=== PATIENT | female | born 1985 | race Caucasian/White ===

== ENCOUNTER 2017-02-12 10:57 | Emergency (ER) | payer OTHER ==
[2017-02-12 11:02] VITALS: BP 118/77; PULSE 87; TEMP 98.1; BMI 24.1
--- NOTE | 2017-02-12 11:13 | PDOC ---
History of Present Illness - General Chief Complaint: Pain Stated Complaint: FALL/ RIB PAIN Time Seen by Provider: 02/12/17 11:11 History Source: Patient Exam Limitations: No Limitations - History of Present Illness Initial Comments: 02/12/17 11:42 31 yr female slipped and fell on tile floor in her home one week ago. Pt states she landed on her left couch arm. Pt continued to have pain however pt slipped yesterday and pulled the same side. Pt has pain with deep breath. no shortness of breath or chest pain. Occurred: reports: last week Severity: reports: moderate Pain Location: reports: chest Method of Injury: Yes: fall Past History - Past Medical History Allergies/Adverse Reactions: Allergies Allergy/AdvReac Type Severity Reaction Status Date / Time fish derived Allergy Rash Verified 05/20/16 10:16 ibuprofen [From Motrin] Allergy Verified 02/12/17 11:02 Home Medications: Ambulatory Orders Oxycodone HCl/Acetaminophen [Percocet 5-325 mg Tablet] 1 tab PO Q6H PRN #16 tablet MDD 4 tabs 02/12/17 Other medical history: denies - Surgical History Abdominal Surgery: (HERNIA) - Immunization History Td Vaccination: No TDAP Vaccination: No - Psycho/Social/Smoking Cessation Hx Anxiety: Yes Suicidal Ideation: No Smoking Status: Yes Smoking History: Current every day smoker Number of Cigarettes Smoked Daily: 10 Information on smoking cessation initiated: Yes 'Breaking Loose' booklet given: 02/12/17 Hx Alcohol Use: No Drug/Substance Use Hx: No Substance Use Type: None Trauma Specific PMHX - Complaint Specific PMHX Arthritis: No Back Injury: No Neck Injury: No Hx Sacro Iliac Joint Dysfunction: No Review of Systems - Review of Systems Able to Perform ROS?: Yes Is the patient limited Korean proficient: No Constitutional: No: Symptoms Reported HEENTM: No: Symptoms Reported Respiratory: No: Symptoms reported Cardiac (ROS): Yes: See HPI *Physical Exam - Vital Signs Last Vital Signs Temp Pulse Resp BP Pulse Ox 98.1 F 87 18 118/77 98 02/12/17 10:59 02/12/17 10:59 02/12/17 10:59 02/12/17 10:59 02/12/17 10:59 - Physical Exam General Appearance: Yes: Nourished, Appropriately Dressed HEENT: positive: EOMI, JOHANA, Normal ENT Inspection, TMs Normal, Pharynx Normal Neck: positive: Supple Respiratory/Chest: positive: Chest Tender (left axilary line rib tenderness ), Lungs Clear, Normal Breath Sounds Cardiovascular: positive: Regular Rhythm, Regular Rate Medical Decision Making - Medical Decision Making 02/12/17 11:44 cc: fell last week injured left flank pain was improving however pt slipped again yesterday and pulled the same muscle in same area too tylenol no relief, no abd pain no urine or bowel dysfunction will r/o xray toradol for pain (pt is not allergic to motrin it gives her GI upset) 02/12/17 12:13 xray discussed with radiologist no evidence of pneumonthorax, no effusion dc inst discussed in detail with pt and her mother. all questions asked and answered before discharge. pt stable on discharge. 02/12/17 12:21 *DC/Admit/Observation/Transfer Diagnosis at time of Disposition: Fracture, rib Qualifiers: Encounter type: initial encounter Rib fracture type: single rib Fracture type: closed Laterality: left Qualified Code(s): S22.32XA - Fracture of one rib, left side, initial encounter for closed fracture - Discharge Dispostion Disposition: HOME Condition at time of disposition: Good - Prescriptions Prescriptions: Oxycodone HCl/Acetaminophen [Percocet 5-325 mg Tablet] 1 tab PO Q6H PRN #16 tablet MDD 4 tabs PRN Reason: Severe Pain - Patient Instructions Additional Instructions: take percocet for severe pain this medication can make you dizzy or sleepy use caution when taking this, always take with food take regular tylenol 650mg every 4-6hrs for mild to moderate pain apply warm compresses to the area of pain every 3 hrs for 20 minutes take deep breaths and drink pleanty of fluids to stay hydrated return if any worsening symptoms follow with your doctor for follow up next week
[2017-02-12] MEDS ORDERED: KETOROLAC TROMETHAMINE 60 MG/2 ML VIAL IM ONE (11:42)
[2017-02-12] MEDS ORDERED: KETOROLAC TROMETHAMINE 60 MG/2 ML VIAL ONE (11:46)
== END 2017-02-12 12:23 | disposition home or self-care (01) ==
LOC: JERFT 10:57
PROC: 3E0233Z Introduction of Anti-inflammatory into Muscle, Percutaneous Approach (ICD-10-PCS; principal; 2017-02-12)
DX: S22.32XA Fracture of one rib, left side, initial encounter for closed fracture (principal); W22.03XA Walked into furniture, initial encounter; Y93.9 Activity, unspecified; Y92.008 Other place in unspecified non-institutional (private) residence as the place of occurrence of the external cause; F17.210 Nicotine dependence, cigarettes, uncomplicated
CPT/HCPCS: 71020-TC; 71101-TC; 84703; 96372; 99281-25

== ENCOUNTER 2017-08-24 08:03 | Emergency (ER) | payer OTHER ==
[2017-08-24 08:20] VITALS: BMI 23.3
[2017-08-24 08:58] LABS: URINE APPEARANCE CLEAR; URINE BILIRUBIN NEGATIVE (NEGATIVE); URINE BLOOD NEGATIVE (NEGATIVE); URINE COLOR LTYELLOW; URINE GLUCOSE (UA) NEGATIVE (NEGATIVE); URINE KETONE NEGATIVE (NEGATIVE); URINE LEUK ESTERASE NEGATIVE (NEGATIVE); URINE NITRITE NEGATIVE (NEGATIVE); URINE PROTEIN NEGATIVE (NEGATIVE); URINE UROBILINOGEN NEGATIVE mg/dL (0.2-1.0)
[2017-08-24] MEDS ORDERED: CYCLOBENZAPRINE HCL 10 MG TABLET (FP) PO ONE (08:59)
[2017-08-24] MEDS ORDERED: morphine CARPU-JECT 4 MG/1 ML DISP.SYRIN IVPUSH ONE (08:59)
[2017-08-24] MEDS ORDERED: SODIUM CHLORIDE 1,000 ML IV STA (08:59)
[2017-08-24] MEDS ORDERED: CYCLOBENZAPRINE HCL 10 MG TABLET (FP) ONE (09:06)
[2017-08-24] MEDS ORDERED: morphine CARPU-JECT 2 MG/1 ML DISP.SYRIN ONE (09:06)
[2017-08-24 09:18] LABS: EOSINOPHIL 1.5 % (0-4.5); MCH 28.8 pg (25.7-33.7); MCHC 33.6 g/dl (32.0-36.0); MEAN CELL VOLUME 85.7 fl (80-96); MEAN PLT VOLUME 8.4 fl (7.5-11.1); NEUTROPHILS 65.2 % (42.8-82.8); PLATELET COUNT 278 K/MM3 (134-434); RDW 14.5 % (11.6-15.6); WHITE BLOOD COUNT 9.2 K/mm3 (4.0-10.0)
--- NOTE | 2017-08-24 09:33 | PDOC ---
History of Present Illness - General History Source: Patient Exam Limitations: No Limitations - History of Present Illness Initial Comments: 08/24/17 10:05 The patient is a 31 year old female, with questionable past medical history of irregular heartbeat/TIA?, scoliosis, who presents to the emergency room complaining of middle back pain that woke her up from a sound sleep this morning. She thinks that she turned in the wrong direction when the back pain began and it made her see stars. The pain feels like her back is tightening and sometimes takes her breath away. She notes that she has had muscle spasms in the past and this feels the same as the previous spasms. Denies chest pain, SOB. Denies abdominal pain. Denies fever, chills, nausea, vomiting. Allergies: ibuprofen, fish <Denise Valdez - Last Filed: 08/24/17 10:04> - General History Source: Patient, Old Records Exam Limitations: No Limitations <Maxx Granados - Last Filed: 08/24/17 11:36> - General Chief Complaint: Back Pain Stated Complaint: BACK PAIN Time Seen by Provider: 08/24/17 08:16 Past History <Denise Valdez - Last Filed: 08/24/17 10:04> - Surgical History Abdominal Surgery: (HERNIA) - Immunization History Td Vaccination: No TDAP Vaccination: No - Suicide/Smoking/Psychosocial Hx Smoking Status: Yes Smoking History: Current every day smoker Have you smoked in the past 12 months: Yes Number of Cigarettes Smoked Daily: 2 Information on smoking cessation initiated: No 'Breaking Loose' booklet given: 02/12/17 Hx Alcohol Use: Yes Drug/Substance Use Hx: No Substance Use Type: Alcohol <Maxx Granados - Last Filed: 08/24/17 11:36> - Past Medical History Allergies/Adverse Reactions: Allergies Allergy/AdvReac Type Severity Reaction Status Date / Time fish derived Allergy Rash Verified 08/24/17 08:06 ibuprofen [From Motrin] Allergy Verified 08/24/17 08:06 Home Medications: Ambulatory Orders Diazepam [Valium] 5 mg PO BID PRN #10 tablet MDD 2 08/24/17 Methocarbamol [Robaxin -] 500 mg PO BID PRN #14 tablet 08/24/17 Oxycodone HCl/Acetaminophen [Percocet 5-325 mg Tablet] 1 tab PO Q6H PRN #20 tablet MDD 4 08/24/17 Review of Systems - Review of Systems Able to Perform ROS?: Yes Comments:: 08/24/17 10:05 GENERAL/CONSTITUTIONAL: No fever or chills. No weakness. HEAD, EYES, EARS, NOSE AND THROAT: No change in vision. No ear pain or discharge. No sore throat. CARDIOVASCULAR: No chest pain or shortness of breath. RESPIRATORY: No cough, wheezing, or hemoptysis. GASTROINTESTINAL: No nausea, vomiting, diarrhea or constipation. GENITOURINARY: No dysuria, frequency, or change in urination. MUSCULOSKELETAL: +middle back pain. No neck pain. SKIN: No rash NEUROLOGIC: No headache, vertigo, loss of consciousness, or change in strength/ sensation. ENDOCRINE: No increased thirst. No abnormal weight change. HEMATOLOGIC/LYMPHATIC: No anemia, easy bleeding, or history of blood clots. ALLERGIC/IMMUNOLOGIC: No hives or skin allergy. <Denise Valdez - Last Filed: 08/24/17 10:04> *Physical Exam - Vital Signs Last Vital Signs Temp Pulse Resp BP Pulse Ox 98.5 F 61 16 116/62 100 08/24/17 08:12 08/24/17 08:12 08/24/17 08:12 08/24/17 08:12 08/24/17 08:12 - Physical Exam Comments: 08/24/17 10:05 GENERAL: Awake, alert, and fully oriented. Appears very uncomfortable HEAD: No signs of trauma EYES: PERRLA, EOMI, sclera anicteric, conjunctiva clear ENT: Auricles normal inspection, hearing grossly normal, nares patent, oropharynx clear without exudates. Moist mucosa NECK: Normal ROM, supple, no lymphadenopathy, JVD, or masses LUNGS: Breath sounds equal, clear to auscultation bilaterally. No wheezes, and no crackles HEART: Regular rate and rhythm, normal S1 and S2, no murmurs, rubs or gallops ABDOMEN: Soft, nontender, normoactive bowel sounds. No guarding, no rebound. No masses BACK: mid upper back spasm. Moving all extremities with 5/5 strength. EXTREMITIES: Normal range of motion, no edema. No clubbing or cyanosis. No cords, erythema, or tenderness NEUROLOGICAL: Cranial nerves II through XII grossly intact. Normal speech, normal gait SKIN: Warm, Dry, normal turgor, no rashes or lesions noted. <Sam Valdezssica - Last Filed: 08/24/17 10:04> - Vital Signs Last Vital Signs Temp Pulse Resp BP Pulse Ox 98.5 F 61 16 116/62 100 08/24/17 08:12 08/24/17 08:12 08/24/17 08:12 08/24/17 08:12 08/24/17 08:12 <Mee Granadosel - Last Filed: 08/24/17 11:36> ED Treatment Course - LABORATORY CBC & Chemistry Diagram: 08/24/17 09:10 08/24/17 09:10 - ADDITIONAL ORDERS Additional order review: Laboratory Results 08/24/17 08/24/17 09:10 08:45 Sodium 137 Potassium 4.5 Chloride 108 H Carbon Dioxide 24 Anion Gap 5 L BUN 14 Creatinine 0.8 Creat Clearance w eGFR > 60 Random Glucose 98 Calcium 8.7 Total Bilirubin 0.2 D AST 10 L ALT 17 D Alkaline Phosphatase 66 Total Protein 6.5 Albumin 3.6 Lipase 219 Urine Color Ltyellow Urine Appearance Clear Urine pH 6.0 Urine Protein Negative Urine Glucose (UA) Negative Urine Ketones Negative Urine Blood Negative Urine Nitrite Negative Urine Bilirubin Negative Urine Urobilinogen Negative Urine HCG, Qual Negative 08/24/17 09:10 RBC 4.61 MCV 85.7 MCHC 33.6 RDW 14.5 MPV 8.4 Neutrophils % 65.2 Lymphocytes % 25.1 D Monocytes % 7.2 Eosinophils % 1.5 Basophils % 1.0 - Medications Given in the ED: ED Medications Discontinued Medications Generic Name Dose Route Start Last Admin Trade Name Freq PRN Reason Stop Dose Admin Cyclobenzaprine HCl 10 mg 08/24/17 08:59 08/24/17 09:10 Flexeril - PO 08/24/17 09:00 10 mg ONCE ONE Administration Sodium Chloride 1,000 mls @ 1,000 mls/hr 08/24/17 08:59 08/24/17 09:00 Normal Saline - IV 08/24/17 09:58 1,000 mls/hr ASDIR STA Administration Morphine Sulfate 4 mg 08/24/17 08:59 08/24/17 09:10 Morphine Injection - IVPUSH 08/24/17 09:00 4 mg ONCE ONE Administration <Denise Valdez - Last Filed: 08/24/17 10:04> - LABORATORY CBC & Chemistry Diagram: 08/24/17 09:10 08/24/17 09:10 - ADDITIONAL ORDERS Additional order review: Laboratory Results 08/24/17 08:45 Urine HCG, Qual Negative <Maxx Granados - Last Filed: 08/24/17 11:36> Medical Decision Making - Medical Decision Making 08/24/17 09:00 A portion of this note was documented by scribe services under my direction. I have reviewed the details of the note, within reason, and agree with the documentation with the following case summary and management plan written by me. Patient treated in the ED. Nursing notes are reviewed and incorporated into the medical decision-making. Vital signs reviewed. Peripheral IV access obtained by the nurse, laboratory studies are drawn and sent, reviewed and interpreted by myself. Vital Signs Temp Pulse Resp BP Pulse Ox 98.5 F 61 16 116/62 100 08/24/17 08:12 08/24/17 08:12 08/24/17 08:12 08/24/17 08:12 08/24/17 08:12 31 year old female with ?history of irregular heart beat with ?TIA p/w back spasm. 31-year-old female presents with mid back spasm. Patient reports that she has intermittent chronic back pain. Woke up this morning with severe back spasm. Denies flank pain dysuria, intermittent anterior, fevers, chills. I suspect that the patient is having a severe muscle spasm. However, will check UA and labs to r/o pyelonephritis. Pain control and reassess. 08/24/17 11:24 CBC, BMP 08/24/17 09:10 08/24/17 09:10 CMP Sodium 137 mmol/L (136-145) 08/24/17 09:10 Potassium 4.5 mmol/L (3.5-5.1) 08/24/17 09:10 Chloride 108 mmol/L (98-107) H 08/24/17 09:10 Carbon Dioxide 24 mmol/L (21-32) 08/24/17 09:10 Anion Gap 5 (8-16) L 08/24/17 09:10 BUN 14 mg/dL (7-18) 08/24/17 09:10 Creatinine 0.8 mg/dL (0.55-1.02) 08/24/17 09:10 Creat Clearance w eGFR > 60 (>60) 08/24/17 09:10 Random Glucose 98 mg/dL (74-106) 08/24/17 09:10 Calcium 8.7 mg/dL (8.5-10.1) 08/24/17 09:10 Total Bilirubin 0.2 mg/dL (0.2-1.0) D 08/24/17 09:10 AST 10 U/L (15-37) L 08/24/17 09:10 ALT 17 U/L (12-78) D 08/24/17 09:10 Alkaline Phosphatase 66 U/L (45-117) 08/24/17 09:10 Total Protein 6.5 g/dl (6.4-8.2) 08/24/17 09:10 Albumin 3.6 g/dl (3.4-5.0) 08/24/17 09:10 Lipase 219 U/L (73-393) 08/24/17 09:10 Urine Test Results Urine Color Ltyellow 08/24/17 08:45 Urine Appearance Clear 08/24/17 08:45 Urine pH 6.0 (5.0-8.0) 08/24/17 08:45 Ur Specific [place] 1.020 (1.005-1.025) 08/24/17 08:45 Urine Protein Negative (NEGATIVE) 08/24/17 08:45 Urine Glucose (UA) Negative (NEGATIVE) 08/24/17 08:45 Urine Ketones Negative (NEGATIVE) 08/24/17 08:45 Urine Blood Negative (NEGATIVE) 08/24/17 08:45 Urine Nitrite Negative (NEGATIVE) 08/24/17 08:45 Urine Bilirubin Negative (NEGATIVE) 08/24/17 08:45 Labs reviewed. pt reports feeling significantly better with percocet and valium. Pt will go home with family. Again, likely back spasm. Supportive care and follow up with PMD I discussed the physical exam findings, ancillary test results and final diagnoses with the patient. I answered all of the patient's questions. The patient was satisfied with the care received and felt comfortable with the discharge plan and treatment plan. The patient will call their primary care physician within 24 hours to arrange follow-up and will return to the Emergency Department with any new, persistant or worsening symptoms. <Maxx Granados - Last Filed: 08/24/17 11:36> *DC/Admit/Observation/Transfer - Attestations Scribe Attestion: 08/24/17 10:05 Documentation prepared by SOLA Rose, acting as medical coding technician for Maxx Granados MD. <Denise Valdez - Last Filed: 08/24/17 10:04> - Discharge Dispostion Admit: No <Maxx Granados - Last Filed: 08/24/17 11:36> Diagnosis at time of Disposition: Back spasm - Discharge Dispostion Disposition: HOME Condition at time of disposition: Improved - Prescriptions Prescriptions: Oxycodone HCl/Acetaminophen [Percocet 5-325 mg Tablet] 1 tab PO Q6H PRN #20 tablet MDD 4 PRN Reason: Pain Methocarbamol [Robaxin -] 500 mg PO BID PRN #14 tablet PRN Reason: Muscle Spasm Diazepam [Valium] 5 mg PO BID PRN #10 tablet MDD 2 PRN Reason: Severe Muscle Spasm - Patient Instructions Printed Discharge Instructions: DI for Back Spasm Additional Instructions: It is very important that you follow up with your doctor. It may take several days before you feel better. Take 1 tablet of percocet every 6 to 8 hours as needed for pain. For muscle spasm, take a tablet of robaxin every 12 hours as needed. For severe muscle spasm, take a tablet of valium every 12 hours as needed. This medication may make you drowsy so please do not drink or drive. - Post Discharge Activity Forms/Work/School Notes: Back to Work
[2017-08-24 09:41] LABS: ALBUMIN 3.6 g/dl (3.4-5.0); ANION GAP 5 (8-16); BILIRUBIN,TOTAL 0.2 mg/dL (0.2-1.0); CALCIUM 8.7 mg/dL (8.5-10.1); CO2 24 mmol/L (21-32); CREATININE 0.8 mg/dL (0.55-1.02); GLUCOSE,RANDOM 98 mg/dL (74-106); SGOT/AST 10 U/L (15-37); SGPT/ALT 17 U/L (12-78); TOT PROT 6.5 g/dl (6.4-8.2)
[2017-08-24 09:42] LABS: ALK PHOS 66 U/L (45-117)
[2017-08-24] MEDS ORDERED: diazePAM 5 MG TABLET PO ONE (10:17)
[2017-08-24] MEDS ORDERED: diazePAM 5 MG TABLET ONE (10:23)
[2017-08-24 12:16] VITALS: BP 120/68; PULSE 64; TEMP 98.2
== END 2017-08-24 13:12 | disposition home or self-care (01) ==
LOC: JER 08:03
PROC: 3E0337Z Introduction of Electrolytic and Water Balance Substance into Peripheral Vein, Percutaneous Approach (ICD-10-PCS; principal; 2017-08-24)
PROC: 3E033NZ Introduction of Analgesics, Hypnotics, Sedatives into Peripheral Vein, Percutaneous Approach (ICD-10-PCS; 2017-08-24)
DX: M62.830 Muscle spasm of back (principal)
CPT/HCPCS: 36415; 80053; 81003; 83690; 84703; 85025; 87086; 96361; 96374; 99282-25

== ENCOUNTER 2017-12-28 18:50 | Emergency (ER) | payer OTHER ==
--- NOTE | 2017-12-28 18:57 | PDOC ---
Rapid Medical Evaluation Time Seen by Provider: 12/28/17 18:55 Medical Evaluation: Allergies Allergy/AdvReac Type Severity Reaction Status Date / Time fish derived Allergy Rash Verified 08/24/17 08:06 ibuprofen [From Motrin] Allergy Verified 08/24/17 08:06 12/28/17 18:57 32 year old female smoker s/p fall with head trauma 10/01/17, then fell down stairs 3-4 weeks ago and hit head again, here with headaches, intermittent vision loss, and "beeping" in ears. Denies abuse. V/s unremarkable. -Pgu -To Main ED for further evaluation
[2017-12-28 19:00] VITALS: BP 119/73; PULSE 74; TEMP 98.6; BMI 23.3
--- NOTE | 2017-12-28 20:01 | PDOC ---
History of Present Illness - General Chief Complaint: Headache Stated Complaint: HEADACHE Time Seen by Provider: 12/28/17 18:55 History Source: Patient Exam Limitations: No Limitations - History of Present Illness Initial Comments: CHIEF COMPLAINT: 32 y/o afebrile female with no significant PMH c/o headaches, vision changes and vomiting s/p 2 head injuries. HISTORY OF PRESENT ILLNESS: The patient states she hit the right side of her head about 3 months ago and had a bump on her head "for a while". She states 3 weeks ago she fell backwards and hit her head again. She admits she lost consciousness after both falls. She states for the past 3 weeks she's gotten headaches twice a day with some vision changes and vomiting. She denies f/c, neck pain, bleeding from ears/nose, dizziness, Cp, SOB, abd pain. She is not taking any medication for her symptoms. Vital signs on arrival are within normal limits. REVIEW OF SYSTEMS: GENERAL/CONSTITUTIONAL: No fever/chills. No weakness. No weight change. HEAD, EYES, EARS, NOSE AND THROAT: +vision changes. No ear pain or discharge. No sore throat. No orbital swelling or deformities . CARDIOVASCULAR: No chest pain or shortness of breath. RESPIRATORY: No cough, wheezing, or hemoptysis. GASTROINTESTINAL: +vomiting. no diarrhea, constipation, abd pain. GENITOURINARY: No dysuria, frequency, or change in urination. MUSCULOSKELETAL: No joint or muscle swelling or pain. No neck or back pain. SKIN: No rash or easy bruising. NEUROLOGIC: +headache. No vertigo, loss of consciousness, or loss of sensation. PHYSICAL EXAM: GENERAL: The patient is awake, alert, and fully oriented, in no acute distress. She is well appearing and ambulatory. HEAD: Normal with no signs of trauma. No hematomas. ENT: Pupils equal, round and reactive to light, extraocular movements intact, sclera anicteric, conjunctiva clear. EOMs intact. No pain with EOMs. LUNGS: Clear to auscultation bilaterally. Normal excursion. No respiratory distress or use of accessory muscles. CV: RRR, S1/S2, no MRG. Cap refill < 2 sec. ABDOMEN: Soft, non-distended, non-tender even to deep palpation, no hepatomegaly or splenomegaly, no masses. EXTREMITIES: Normal range of motion, no edema. NEUROLOGICAL: Normal speech, normal gait. CN II-XII grossly intact. Normal finger to nose. SKIN: Warm, dry, normal turgor, no rashes or lesions noted. Past History - Past Medical History Allergies/Adverse Reactions: Allergies Allergy/AdvReac Type Severity Reaction Status Date / Time fish derived Allergy Rash Verified 12/28/17 18:57 ibuprofen [From Motrin] Allergy Verified 12/28/17 18:57 Penicillins Allergy Itching Verified 12/28/17 18:57 Home Medications: Ambulatory Orders NK [No Known Home Medication] 12/28/17 - Surgical History Abdominal Surgery: (HERNIA) - Immunization History Td Vaccination: No TDAP Vaccination: No - Suicide/Smoking/Psychosocial Hx Smoking Status: Yes Smoking History: Current every day smoker Have you smoked in the past 12 months: Yes Number of Cigarettes Smoked Daily: 3 Information on smoking cessation initiated: No 'Breaking Loose' booklet given: 02/12/17 Hx Alcohol Use: Yes Drug/Substance Use Hx: Yes Substance Use Type: None *Physical Exam - Vital Signs Last Vital Signs Temp Pulse Resp BP Pulse Ox 98.6 F 74 18 119/73 98 12/28/17 18:57 12/28/17 18:57 12/28/17 18:57 12/28/17 18:57 12/28/17 18:57 ED Treatment Course - ADDITIONAL ORDERS Additional order review: Laboratory Results 12/28/17 19:10 Urine HCG, Qual Negative Medical Decision Making - Medical Decision Making A/P: 32 y/o female with symptoms of concussion s/p 2 falls with head trauma. Plan is as follows: 1. hcg 2. head ct hcg - negative Head CT IMPRESSION: No acute intracranial hemorrhage or acute skull fracture. No mass effects or hydrocephalus. Gave the patient the results. Will discharge with referral to neurologist and return precautions. The patient verbalizes understanding of all instructions, has no further questions and is awaiting discharge. *DC/Admit/Observation/Transfer Diagnosis at time of Disposition: Head trauma Qualifiers: Encounter type: initial encounter Qualified Code(s): S09.90XA - Unspecified injury of head, initial encounter Concussion Qualifiers: Encounter type: initial encounter Loss of consciousness presence/duration: with LOC of 30 min or less Qualified Code(s): S06.0X1A - Concussion with loss of consciousness of 30 minutes or less, initial encounter - Discharge Dispostion Disposition: HOME Condition at time of disposition: Good - Referrals Referrals: Camilo Kan MD [Primary Care Provider] - Shahzad Macias MD [Staff Physician] - Call tomorrow - Patient Instructions Printed Discharge Instructions: DI for Closed Head Injury, DI for Postconcussion Syndrome Additional Instructions: Discharge Instructions: -The cat scan of your head was normal -You have symptoms of a concussion -Please call Dr. Macias for a follow up if symptoms continue -Take Tylenol for pain -Return to the ER with any worsening or concerning symptoms. - Post Discharge Activity Forms/Work/School Notes: Back to Work
--- NOTE | 2017-12-28 20:07 | PDOC ---
*Physical Exam - Vital Signs Last Vital Signs Temp Pulse Resp BP Pulse Ox 98.6 F 74 18 119/73 98 12/28/17 18:57 12/28/17 18:57 12/28/17 18:57 12/28/17 18:57 12/28/17 18:57 ED Treatment Course - ADDITIONAL ORDERS Additional order review: Laboratory Results 12/28/17 19:10 Urine HCG, Qual Negative Medical Decision Making - Medical Decision Making 12/28/17 20:07 agree with care from ANALILIA Jane *DC/Admit/Observation/Transfer Diagnosis at time of Disposition: Head trauma, Concussion - Discharge Dispostion Disposition: HOME Condition at time of disposition: Good - Referrals Referrals: Shahzad Macias MD [Staff Physician] - Call tomorrow Camilo Kan MD [Primary Care Provider] - - Patient Instructions Printed Discharge Instructions: DI for Closed Head Injury, DI for Postconcussion Syndrome Additional Instructions: Discharge Instructions: -The cat scan of your head was normal -You have symptoms of a concussion -Please call Dr. Macias for a follow up if symptoms continue -Take Tylenol for pain -Return to the ER with any worsening or concerning symptoms. - Post Discharge Activity Forms/Work/School Notes: Back to Work
== END 2017-12-28 22:19 | disposition home or self-care (01) ==
LOC: JER 18:50
DX: S06.0X1A Concussion with loss of consciousness of 30 minutes or less, initial encounter (principal); W10.8XXA Fall (on) (from) other stairs and steps, initial encounter; Y93.89 Activity, other specified; Y92.89 Other specified places as the place of occurrence of the external cause; Y99.8 Other external cause status; F17.210 Nicotine dependence, cigarettes, uncomplicated
CPT/HCPCS: 70450-TC; 84703; 99281-25

== ENCOUNTER 2018-02-10 15:13 | Emergency (ER) | payer OTHER ==
[2018-02-10 15:19] VITALS: BP 119/74; PULSE 69; TEMP 97.2; BMI 24.1
--- NOTE | 2018-02-10 15:20 | PDOC ---
Rapid Medical Evaluation Time Seen by Provider: 02/10/18 15:14 Medical Evaluation: Allergies Allergy/AdvReac Type Severity Reaction Status Date / Time fish derived Allergy Rash Verified 12/28/17 18:57 ibuprofen [From Motrin] Allergy Verified 12/28/17 18:57 Penicillins Allergy Itching Verified 12/28/17 18:57 I have performed a brief in-person evaluation of this patient. The patient presents with a chief complaint of: back pain since this morning. worse with movement and with inspiration Pertinent physical exam findings: left lumbar paravertebral TTP L1-L3 I have ordered the following: hcg, xray lumbar spine and CXR The patient will proceed to the ED for further evaluation. Discharge Disposition - Diagnosis Back pain - Referrals - Patient Instructions - Post Discharge Activity
[2018-02-10] MEDS ORDERED: ACETAMINOPHEN 325 MG TABLET (FP) PO ONE (15:23)
--- NOTE | 2018-02-10 16:24 | PDOC ---
History of Present Illness - General Chief Complaint: Back Pain Stated Complaint: SOB, BACK PAIN Time Seen by Provider: 02/10/18 15:14 History Source: Patient Exam Limitations: No Limitations - History of Present Illness Initial Comments: 02/10/18 16:23 32-year-old female presents to the ED with her evaluation of left thoracic and lumbar pain which she states awoke with. Patient states has had similar symptoms in the past but no responsive muscle relaxer. Patient denies chest pain , shortness of breath, rash, or recent injury. Patient states slept on the couch and feels this may attributes her pain. Timing/Duration: other Severity: moderate Associated Symptoms: denies: denies symptoms Past History - Travel Traveled outside of the country in the last 30 days: No - Past Medical History Allergies/Adverse Reactions: Allergies Allergy/AdvReac Type Severity Reaction Status Date / Time fish derived Allergy Rash Verified 02/10/18 15:15 Penicillins Allergy Itching Verified 02/10/18 15:15 ibuprofen [From Motrin] AdvReac Verified 02/10/18 15:18 Home Medications: Ambulatory Orders NK [No Known Home Medication] 12/28/17 COPD: No Other medical history: denies. - Surgical History Abdominal Surgery: Yes (HERNIA) - Immunization History Td Vaccination: No TDAP Vaccination: No - Suicide/Smoking/Psychosocial Hx Smoking Status: Yes Smoking History: Current every day smoker Have you smoked in the past 12 months: Yes Number of Cigarettes Smoked Daily: 2 Information on smoking cessation initiated: No 'Breaking Loose' booklet given: 02/12/17 Hx Alcohol Use: Yes Drug/Substance Use Hx: Yes Substance Use Type: None Patient Lives Alone: No Lives with/in: spouse/SO Review of Systems - Review of Systems Able to Perform ROS?: No HEENTM: No: Symptoms Reported Respiratory: No: Symptoms reported ABD/GI: No: Symptoms Reported Musculoskeletal: Yes: Back Pain, Muscle Pain Integumentary: No: Symptoms Reported Neurological: No: Symptoms reported Endocrine: No: Symptoms Reported Hematologic/Lymphatic: No: Symptoms Reported *Physical Exam - Vital Signs Last Vital Signs Temp Pulse Resp BP Pulse Ox 97.2 F L 69 22 119/74 100 02/10/18 15:15 02/10/18 15:15 02/10/18 15:15 02/10/18 15:15 02/10/18 15:15 - Physical Exam General Appearance: Yes: Nourished, Appropriately Dressed. No: Apparent Distress Neck: positive: Supple Respiratory/Chest: positive: Lungs Clear, Normal Breath Sounds. negative: Chest Tender, Respiratory Distress, Accessory Muscle Use Cardiovascular: positive: Regular Rhythm, Regular Rate. negative: Murmur Gastrointestinal/Abdominal: positive: Soft. negative: Tenderness Musculoskeletal: positive: Other (right thoracic at t6 to l1 level). negative: Vertebral Tenderness (no midline tenderness) Extremity: positive: Normal Range of Motion ED Treatment Course - ADDITIONAL ORDERS Additional order review: Laboratory Results 02/10/18 15:27 Urine HCG, Qual Negative - Medications Given in the ED: ED Medications Discontinued Medications Generic Name Dose Route Start Last Admin Trade Name Freq PRN Reason Stop Dose Admin Acetaminophen 650 mg 02/10/18 15:23 02/10/18 15:26 Tylenol - PO 02/10/18 15:24 650 mg ONCE ONE Administration Medical Decision Making - Medical Decision Making 02/10/18 16:26 Patient here with likely muscle spasm which she states has had in the past. Patient's chest x-ray and lumbar x-ray negative for acute findings. Patient states child did not alleviate her discomfort. Patient be ordered for 1 Percocet and 5 mg of Flexeril. 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 Please follow-up with your PCP and/or go to the ER If symptoms continue. - Post Discharge Activity
[2018-02-10] MEDS ORDERED: CYCLOBENZAPRINE HCL 10 MG TABLET (FP) PO ONE (16:27)
[2018-02-10] MEDS ORDERED: CYCLOBENZAPRINE HCL 10 MG TABLET (FP) ONE (16:30)
== END 2018-02-10 16:40 | disposition home or self-care (01) ==
LOC: JERFT 15:13
DX: M54.5 Low back pain (principal); F17.210 Nicotine dependence, cigarettes, uncomplicated
CPT/HCPCS: 71046-TC-FY; 72100-TC-FY; 84703; 99281-25

== ENCOUNTER 2019-02-21 11:02 | Emergency (ER) | payer OTHER ==
[2019-02-21 11:17] VITALS: BP 102/60; PULSE 68; TEMP 98.2; BMI 26.6
--- NOTE | 2019-02-21 12:30 | PDOC ---
History of Present Illness - General Chief Complaint: Cold Symptoms Stated Complaint: COLD SYMPTOMS Time Seen by Provider: 02/21/19 12:00 History Source: Patient Exam Limitations: No Limitations Past History - Travel Traveled outside of the country in the last 30 days: No Close contact w/someone who was outside of country & ill: No - Past Medical History Allergies/Adverse Reactions: Allergies Allergy/AdvReac Type Severity Reaction Status Date / Time fish derived Allergy Rash Verified 02/21/19 11:14 Penicillins Allergy Itching Verified 02/21/19 11:14 ibuprofen [From Motrin] AdvReac Verified 02/21/19 11:14 Home Medications: Ambulatory Orders Fluticasone Prop 0.05% Nasal [Flonase -] 1 - 2 spray NS DAILY #1 spray.pump 01/10 Pseudoephedrine HCl 30 mg PO Q8H #15 tablet 02/21/19 COPD: No - Surgical History Abdominal Surgery: Yes (HERNIA) - Immunization History Td Vaccination: No TDAP Vaccination: No - Suicide/Smoking/Psychosocial Hx Smoking Status: Yes Smoking History: Current some day smoker Have you smoked in the past 12 months: Yes Number of Cigarettes Smoked Daily: 4 Information on smoking cessation initiated: Yes 'Breaking Loose' booklet given: 02/12/17 Hx Alcohol Use: Yes Drug/Substance Use Hx: Yes Substance Use Type: None Review of Systems - Review of Systems Able to Perform ROS?: Yes Comments:: 02/21/19 12:21 CONSTITUTIONAL: Absent: fever, chills, diaphoresis, generalized weakness, malaise, loss of appetite HEENT: Present: nasal congestion Absent: rhinorrhea, nasal congestion, throat pain, throat swelling, difficulty swallowing, mouth swelling, ear pain, eye pain, visual Changes CARDIOVASCULAR: Absent: chest pain, loss of consciousness, palpitations, irregular heart rate, peripheral edema RESPIRATORY: Present: cough Absent: shortness of breath, dyspnea with exertion, orthopnea, wheezing, stridor, hemoptysis GASTROINTESTINAL: Absent: abdominal pain, abdominal distension, nausea, vomiting, diarrhea, constipation, melena, hematochezia GENITOURINARY: Absent: dysuria, frequency, urgency, hesitancy, hematuria, flank pain, genital pain MUSCULOSKELETAL: Absent: myalgia, arthralgia, joint swelling SKIN: Absent: rash, itching, pallor HEMATOLOGIC/IMMUNOLOGIC: Absent: easy bleeding, easy bruising, lymphadenopathy, frequent infections ENDOCRINE: Absent: unexplained weight gain, unexplained weight loss, heat intolerance, cold intolerance NEUROLOGIC: Absent: headache, focal weakness or paresthesias, dizziness, unsteady gait, seizure, mental status changes, bladder or bowel incontinence PSYCHIATRIC: Absent: anxiety, depression, suicidal or homicidal ideation, hallucinations. Is the patient limited Romansh proficient: No *Physical Exam - Vital Signs Last Vital Signs Temp Pulse Resp BP Pulse Ox 98.2 F 68 17 102/60 97 02/21/19 11:14 02/21/19 11:14 02/21/19 11:14 02/21/19 11:14 02/21/19 11:14 - Physical Exam Comments: 02/21/19 12:21 GENERAL: Well developed, well nourished. Awake and alert. No acute distress. HEENT: Normocephalic, atraumatic. PERRLA, EOMI. No conjunctival pallor. Sclera are non- icteric. Moist mucous membranes. Oropharynx is clear. Nasal turbinates are injected. TTP over the maxillary sinuses. TM's b/l. are with fluid behind the membrane without evidence of infection NECK: Supple. Full ROM. No JVD. Carotid pulses 2+ and symmetric, without bruits. No thyromegaly. No lymphadenopathy. PULMONARY: No evidence of respiratory distress. Lungs clear to auscultation bilaterally. No wheezing, rales or rhonchi. SKIN: Warm and dry. Normal capillary refill. No rashes. No jaundice. NEUROLOGICAL: Alert, awake, appropriate. Cranial nerves 2-12 intact. No deficits to light touch and temperature in face, upper extremities and lower extremities. No motor deficits in the in face, upper extremities and lower extremities. Normoreflexic in the upper and lower extremities. Normal speech. Toes are down- going bilaterally. Gait is normal without ataxia. PSYCHIATRIC: Cooperative. Good eye contact. Appropriate mood and affect. Medical Decision Making - Medical Decision Making 02/21/19 12:26 Patient is a 33-year-old female no past medical history who presents to the emergency department today for nasal congestion for two days. Pt states she has been taking dayquil with little relief of her symptoms. Admits to productive cough. Denies fever, chills, shortness of breath, chest pain, nausea, vomiting and diarrhea A/P: Nasal congestion On exam patient's maxillary sinus tenderness and injected nasal turbinates. Given only 2 days of symptoms we'll hold off on antibiotics. Possibly a viral sinusitis. Sudafed and Flonase sent patient pharmacy. Discussed with patient that if her symptoms last for another 5 days she should follow-up with primary care doctor for possible antibiotic treatment. Discharge home I discussed the physical exam findings, ancillary test results and final diagnoses with the patient. I answered all of the patient's questions. The patient was satisfied with the care received and felt comfortable with the discharge plan and treatment plan. The Patient agrees to follow up with the primary care physician/specialist within 24-72 hours. Return precautions were given. *DC/Admit/Observation/Transfer Diagnosis at time of Disposition: Sinus congestion - Discharge Dispostion Disposition: HOME Condition at time of disposition: Stable Decision to Admit order: No - Referrals Referrals: Camilo Kan MD [Primary Care Provider] - - Patient Instructions Printed Discharge Instructions: DI for Sinusitis Additional Instructions: You have sinus congestion Take the psudafed and flonase as directed Warm steamy showers may help with congestion Follow up with your doctor this week Return to the ED For any new or worsening symptoms - Post Discharge Activity Forms/Work/School Notes: Back to Work
== END 2019-02-21 12:37 | disposition home or self-care (01) ==
LOC: JERFT 11:02
DX: J01.90 Acute sinusitis, unspecified (principal)
CPT/HCPCS: 99281-25

== ENCOUNTER 2019-04-24 16:28 | Emergency (ER) | payer OTHER ==
--- NOTE | 2019-04-24 16:37 | PDOC ---
Rapid Medical Evaluation Time Seen by Provider: 04/24/19 16:33 Medical Evaluation: Allergies Allergy/AdvReac Type Severity Reaction Status Date / Time fish derived Allergy Rash Verified 02/21/19 11:14 Penicillins Allergy Itching Verified 02/21/19 11:14 ibuprofen [From Motrin] AdvReac Verified 02/21/19 11:14 04/24/19 16:33 This patient had brief in-person evaluation cc: upper back pain x 3 days PE: Nad + tenderness to left rib area +abrasion and bruising noted on left side order: urine ordered This patient will proceed to the ED for further evaluation Discharge Disposition - Diagnosis Rib pain on left side - Referrals - Patient Instructions - Post Discharge Activity
[2019-04-24 16:40] VITALS: BP 149/73; PULSE 83; BMI 26.6
[2019-04-24] MEDS ORDERED: KETOROLAC TROMETHAMINE 30 MG/1 ML VIAL IM ONE (17:52)
--- NOTE | 2019-04-24 17:52 | PDOC ---
History of Present Illness - General Chief Complaint: Shortness of Breath Stated Complaint: SOB Time Seen by Provider: 04/24/19 16:33 History Source: Patient Exam Limitations: No Limitations Past History - Travel Traveled outside of the country in the last 30 days: No Close contact w/someone who was outside of country & ill: No - Past Medical History Allergies/Adverse Reactions: Allergies Allergy/AdvReac Type Severity Reaction Status Date / Time fish derived Allergy Rash Verified 02/21/19 11:14 Penicillins Allergy Itching Verified 02/21/19 11:14 ibuprofen [From Motrin] AdvReac Verified 02/21/19 11:14 Home Medications: Ambulatory Orders Acetaminophen [Tylenol] 650 mg PO Q4H #30 tablet 04/24/19 Cyclobenzaprine HCl 5 mg PO DAILY #15 tablet 04/24/19 COPD: No - Surgical History Abdominal Surgery: Yes (HERNIA) - Immunization History Td Vaccination: No TDAP Vaccination: No - Suicide/Smoking/Psychosocial Hx Smoking Status: Yes Smoking History: Current every day smoker Have you smoked in the past 12 months: Yes Number of Cigarettes Smoked Daily: 3 Information on smoking cessation initiated: No 'Breaking Loose' booklet given: 02/12/17 Hx Alcohol Use: No Drug/Substance Use Hx: No Substance Use Type: None Review of Systems - Review of Systems Able to Perform ROS?: Yes Is the patient limited Chinese proficient: No *Physical Exam - Vital Signs Last Vital Signs Temp Pulse Resp BP Pulse Ox 83 18 149/73 99 04/24/19 16:35 04/24/19 16:35 04/24/19 16:35 04/24/19 16:35 *DC/Admit/Observation/Transfer Diagnosis at time of Disposition: Rib pain on left side - Discharge Dispostion Condition at time of disposition: Stable Decision to Admit order: No - Referrals Referrals: Camilo Kan MD [Primary Care Provider] - - Patient Instructions Printed Discharge Instructions: DI for Costochondritis Additional Instructions: You were evaluated for your rib pain today. It is most likely a muscle spasm. Please take the Flexeril every 8 hours tomorrow. Take one tonight before bed. Do not drink or drive after taking this medication as it may make you drowsy. You may take Tylenol 650 mg every 6 hours as needed for pain. Warm compresses may help. Please follow up with her primary care doctor this week. Return to the ER for worsening pain, difficulty breathing, or if you have any changes in your symptoms. - Post Discharge Activity Forms/Work/School Notes: Back to Work
[2019-04-24] MEDS ORDERED: CYCLOBENZAPRINE HCL 10 MG TABLET (FP) PO ONE (17:53)
[2019-04-24] MEDS ORDERED: LIDOCAINE 5% TOPICAL PATCH TP ONE (17:53)
[2019-04-24] MEDS ORDERED: RANITIDINE HCL 150 MG TABLET (FP) PO ONE (17:53)
[2019-04-24] MEDS ORDERED: LIDOCAINE 5% TOPICAL PATCH ONE (18:04)
[2019-04-24] MEDS ORDERED: CYCLOBENZAPRINE HCL 10 MG TABLET (FP) ONE (18:04)
[2019-04-24] MEDS ORDERED: KETOROLAC TROMETHAMINE 30 MG/1 ML VIAL ONE (18:04)
[2019-04-24] MEDS ORDERED: RANITIDINE HCL 150 MG TABLET (FP) ONE (18:04)
[2019-04-24] MEDS ORDERED: LIDOCAINE PATCH REMOVAL MC SCH (22:00)
== END 2019-04-24 18:57 | disposition home or self-care (01) ==
LOC: JER 16:28
PROC: 3E0233Z Introduction of Anti-inflammatory into Muscle, Percutaneous Approach (ICD-10-PCS; principal; 2019-04-24)
DX: M94.0 Chondrocostal junction syndrome [Tietze] (principal)
CPT/HCPCS: 96372; 99282-25

== ENCOUNTER 2019-07-12 08:06 | Emergency (ER) | payer OTHER ==
[2019-07-12 08:12] VITALS: BP 124/87; PULSE 76; TEMP 98; BMI 26.6
[2019-07-12] MEDS ORDERED: RANITIDINE HCL 150 MG TABLET (FP) PO ONE (08:46)
[2019-07-12] MEDS ORDERED: predniSONE 20 MG TABLET (UD) PO ONE (08:46)
[2019-07-12] MEDS ORDERED: diphenhydrAMINE HCL 25 MG CAPSULE (FP) PO ONE (08:50)
--- NOTE | 2019-07-12 09:04 | PDOC ---
History of Present Illness - General Chief Complaint: Allergic Reaction Stated Complaint: ALLERGIC REACTION TO SPIDER BITE Time Seen by Provider: 07/12/19 08:46 History Source: Patient - History of Present Illness Associated Symptoms: denies: fever/chills, shortness of breath Past History - Past Medical History Allergies/Adverse Reactions: Allergies Allergy/AdvReac Type Severity Reaction Status Date / Time fish derived Allergy Rash Verified 07/12/19 08:24 Penicillins Allergy Itching Verified 07/12/19 08:24 ibuprofen [From Motrin] AdvReac Verified 07/12/19 08:24 Home Medications: Ambulatory Orders Acetaminophen [Tylenol] 650 mg PO Q4H #30 tablet 04/24/19 Cyclobenzaprine HCl 5 mg PO DAILY #15 tablet 04/24/19 Diphenhydramine HCl [Benadryl -] 25 mg PO Q6H #28 capsule 07/12/19 EPINEPHrine (EPI-PEN 0.3MG) [Epipen 0.3MG -] 0.3 mg IM ASDIR #2 pens 07/12/19 Famotidine [Pepcid] 20 mg PO DAILY #7 tablet 07/12/19 Prednisone [Deltasone] 40 mg PO DAILY 4 Days #8 tablet 07/12/19 COPD: No - Surgical History Abdominal Surgery: Yes (HERNIA) - Immunization History Td Vaccination: No TDAP Vaccination: No - Suicide/Smoking/Psychosocial Hx Smoking Status: Yes Smoking History: Current every day smoker Have you smoked in the past 12 months: Yes Number of Cigarettes Smoked Daily: 1 Information on smoking cessation initiated: Yes 'Breaking Loose' booklet given: 02/12/17 Hx Alcohol Use: No Drug/Substance Use Hx: No Substance Use Type: None Review of Systems - Review of Systems Constitutional: No: Chills, Fever HEENTM: No: Mouth Swelling Respiratory: No: Cough, Shortness of Breath, Stridor, Wheezing Integumentary: No: Pruritus *Physical Exam - Vital Signs Last Vital Signs Temp Pulse Resp BP Pulse Ox 98 F 76 18 124/87 100 07/12/19 08:10 07/12/19 08:10 07/12/19 08:10 07/12/19 08:10 07/12/19 08:10 - Physical Exam General Appearance: Yes: Appropriately Dressed. No: Apparent Distress HEENT: positive: Normal Voice, Pharynx Normal, Other (significant edema to L lid , no erythema or sig ttp, conjunc clear w/ no chemosis, no angioedema). negative: Scleral Icterus (R), Scleral Icterus (L), Muffled/Hoarse voice Neck: negative: Stridor, Lymphadenopathy (R), Lymphadenopathy (L) Respiratory/Chest: positive: Lungs Clear, Normal Breath Sounds. negative: Respiratory Distress, Stridor, Wheezing Cardiovascular: positive: Regular Rate, S1, S2 Extremity: positive: Other (edema to L 2nd digit diffusely extending into dorsal aspect, minimal edema to dorsum of distal forearm) Integumentary: positive: Dry, Warm Neurologic: positive: Fully Oriented, Alert, Normal Mood/Affect Medical Decision Making - Medical Decision Making 07/12/19 09:00 33-year-old female, no significant history, here with L periorbital swelling that she awoke with this a.m. Also reports swelling of left upper extremity. States that at some point her throat felt "funny", but that has since resolved. No pruritis, oral/tongue swelling, stridor, wheezing or shortness of breath. Patient does report similar reaction with bug/insect bites. in the past. No h/o anaphylaxis. Other than that only known allergy is to motrin and penicillin see exam Localized allergic rxn ? 2/2 insect bites based on hx No angioedema/resp sxs Edema to L periorbit and L hand -benadryl -pred -H2 jaden -ice -period of obs in ED 07/12/19 10:01 Improved after period of observation here. Remains stable and feels well enough to be discharged. Prescription sent to pharmacy. Strict return precautions given *DC/Admit/Observation/Transfer Diagnosis at time of Disposition: Allergic reaction Qualifiers: Encounter type: initial encounter Qualified Code(s): T78.40XA - Allergy, unspecified, initial encounter - Discharge Dispostion Disposition: HOME Condition at time of disposition: Improved - Prescriptions Prescriptions: Diphenhydramine HCl [Benadryl -] 25 mg PO Q6H #28 capsule EPINEPHrine (EPI-PEN 0.3MG) [Epipen 0.3MG -] 0.3 mg IM ASDIR #2 pens Famotidine [Pepcid] 20 mg PO DAILY #7 tablet Prednisone [Deltasone] 40 mg PO DAILY 4 Days #8 tablet - Referrals - Patient Instructions Printed Discharge Instructions: DI for General Allergic Reactions Additional Instructions: Take medications as directed Apply ice to affected areas frequently throughout the day Return to ED for any worsening of symptoms as discussed - Post Discharge Activity Forms/Work/School Notes: Back to Work
== END 2019-07-12 10:27 | disposition home or self-care (01) ==
LOC: JERFT 08:06
DX: T78.40XA Allergy, unspecified, initial encounter (principal); X58.XXXA Exposure to other specified factors, initial encounter; H05.222 Edema of left orbit; F17.210 Nicotine dependence, cigarettes, uncomplicated; Z88.0 Allergy status to penicillin; Z88.6 Allergy status to analgesic agent; Z91.013 Allergy to seafood
CPT/HCPCS: 99282-25

== ENCOUNTER 2019-08-29 08:18 | Emergency (ER) | payer OTHER ==
[2019-08-29 08:25] VITALS: BP 109/75; PULSE 76; TEMP 98.2; BMI 26.6
--- NOTE | 2019-08-29 08:59 | PDOC ---
History of Present Illness - General Chief Complaint: Bite Stated Complaint: Bite Time Seen by Provider: 08/29/19 08:47 - History of Present Illness Initial Comments: 08/29/19 08:59 CHIEF COMPLAINT: insect bites HISTORY OF PRESENT ILLNESS: 33 yo F presents to fast track with swelling to L eyelid and to left third finger s/p insect bites. Patient states she woke up this morning with insect bites which she believes to be spider bites and developed swelling to her L eyelid and finger. She denies any fever. No recent travel or sick contacts. PAST MEDICAL HISTORY: Denies past medical history FAMILY HISTORY: Denies SOCIAL HISTORY: Denies tobacco, alcohol, illicit drug use. SURGICAL HISTORY: Denies ALLERGIES: PCN, ibuprofen REVIEW OF SYSTEMS General/Constitutional: Denies fever or chills. Denies weakness, weight change. HEENT: Swelling to L eyelid. Denies change in vision. Denies ear pain or discharge. Denies sore throat. Cardiovascular: Denies chest pain or shortness of breath. Respiratory: Denies cough, wheezing, or hemoptysis. Gastrointestinal: Denies nausea, vomiting, diarrhea or constipation. Denies rectal bleeding. Genitourinary: Denies dysuria, frequency, or change in urination. Musculoskeletal: Denies joint or muscle swelling or pain. Denies neck or back pain. Skin and breasts: Insect bite to L forearm and third digit. Neurologic: Denies headache, vertigo, loss of consciousness, or loss of sensation. Psychiatric: Denies depression or anxiety. Endocrine: Denies increased thirst. Denies abnormal weight change. Hematologic/Lymphatic: Denies anemia, easy bleeding, or history of blood clots. Allergic/Immunologic: Denies hives or skin allergy. Denies latex allergy. PHYSICAL EXAM General Appearance: Well-appearing, appropriately dressed. No apparent distress , no intoxication. HEENT: Mild swelling to left upper eyelid. EOMI, PERRLA, normal ENT inspection, normal voice, TMs normal, pharynx normal. No conjunctival pallor. No photophobia, scleral icterus. Neck: Supple. Trachea midline. No tenderness, rigidity, carotid bruit, stridor , lymphadenopathy, or thyromegaly. Respiratory/Chest: Lungs CTAB. No shortness of breath, chest tenderness, respiratory distress, accessory muscle use. No crackles, rales, rhonchi, stridor , wheezing, dullness Cardiovascular: RRR. S1, S2. No JVD, murmur, bradycardia, tachycardia. Vascular Pulses: Dorsalis-Pedis (R): 2+, Dorsalis-Pedis (L): 2+ Gastrointestinal/Abdominal: Normal bowel sounds. Abdomen soft, non-distended. No tenderness or rebound tenderness. No organomegaly, pulsatile mass, guarding , hernia, hepatomegaly, splenomegaly. Lymphatic: No adenopathy, tenderness. Musculoskeletal/Extremities: Normal inspection. FROM of all extremities, normal capillary refill. Pelvis Stable. No CVA tenderness. No tenderness to extremities, pedal edema, swelling, erythema or deformity. Integumentary: Mild edema to R third digit, no erythema or warmth. Pruritic macular lesion approximately 1cm in diameter to anterior L forearm. Appropriate color, dry, warm. No cyanosis, erythema, jaundice or rash Neurologic: advertising operations coordinator II-XII intact. Fully oriented, alert. Appropriate mood/affect. Motor strength 5/5. No appreciable EOM palsy, facial droop or sensory deficit. 08/29/19 09:08 Past History - Past Medical History Allergies/Adverse Reactions: Allergies Allergy/AdvReac Type Severity Reaction Status Date / Time fish derived Allergy Rash Verified 07/12/19 08:24 Penicillins Allergy Itching Verified 07/12/19 08:24 ibuprofen [From Motrin] AdvReac Verified 07/12/19 08:24 Home Medications: Ambulatory Orders Acetaminophen [Tylenol] 650 mg PO Q4H #30 tablet 04/24/19 Cyclobenzaprine HCl 5 mg PO DAILY #15 tablet 04/24/19 Famotidine [Pepcid] 20 mg PO DAILY #7 tablet 07/12/19 Prednisone [Deltasone] 40 mg PO DAILY 4 Days #8 tablet 07/12/19 Diphenhydramine HCl [Benadryl Capsule -] 25 mg PO Q6H PRN #28 capsule 08/29/19 EPINEPHrine (EPI-PEN 0.3MG) [Epipen 0.3MG -] 0.3 mg IM ASDIR #2 pens 08/29/19 COPD: No - Surgical History Abdominal Surgery: Yes (HERNIA) - Immunization History Td Vaccination: No TDAP Vaccination: No - Psycho Social/Smoking Cessation Hx Smoking Status: Yes Smoking History: Never smoked Have you smoked in the past 12 months: No Number of Cigarettes Smoked Daily: 1 Information on smoking cessation initiated: No 'Breaking Loose' booklet given: 02/12/17 Hx Alcohol Use: No Drug/Substance Use Hx: No Substance Use Type: None *Physical Exam - Vital Signs Last Vital Signs Temp Pulse Resp BP Pulse Ox 98.2 F 76 18 109/75 99 08/29/19 08:21 08/29/19 08:21 08/29/19 08:21 08/29/19 08:21 08/29/19 08:21 Medical Decision Making - Medical Decision Making 08/29/19 09:13 33 yo F presents to fast track with swelling to L eyelid and to left third finger s/p insect bites. -decadron IM Advised patient to take medication as prescribed and follow up with dermatology if symptoms persist. Advised patient of signs and symptoms for return to ED. Patient verbalized understanding and agrees to plan. Discharge - Discharge Information Problems reviewed: Yes Clinical Impression/Diagnosis: Insect bite Qualifiers: Encounter type: initial encounter Site of insect bite: head Site of insect bite of head: eyelid Laterality: left Qualified Code(s): S00.262A - Insect bite (nonvenomous) of left eyelid and periocular area, initial encounter; W57.XXXA - Bitten or stung by nonvenomous insect and other nonvenomous arthropods, initial encounter Condition: Stable Disposition: HOME - Admission No - Additional Discharge Information Prescriptions: Diphenhydramine HCl [Benadryl Capsule -] 25 mg PO Q6H PRN #28 capsule PRN Reason: For Itching EPINEPHrine (EPI-PEN 0.3MG) [Epipen 0.3MG -] 0.3 mg IM ASDIR #2 pens - Follow up/Referral Referrals: Camilo Kan MD [Primary Care Provider] - Micheline Kendall MD [Staff Physician] - - Patient Discharge Instructions Patient Printed Discharge Instructions: DI for Insect Bites and Stings Additional Instructions: Please take medications as prescribed. Follow up with dermatology if symptoms persist past 3-4 days. - Post Discharge Activity
[2019-08-29] MEDS ORDERED: DEXAMETHASONE SOD PHOSPHATE 10 MG/1 ML VIAL IM ONE (09:00)
[2019-08-29] MEDS ORDERED: DEXAMETHASONE SOD PHOSPHATE 10 MG/1 ML VIAL ONE (09:02)
== END 2019-08-29 09:26 | disposition home or self-care (01) ==
LOC: JERFT 08:18
PROC: 3E0233Z Introduction of Anti-inflammatory into Muscle, Percutaneous Approach (ICD-10-PCS; principal; 2019-08-29)
DX: S00.262A Insect bite (nonvenomous) of left eyelid and periocular area, initial encounter (principal); S60.463A Insect bite (nonvenomous) of left middle finger, initial encounter; S50.862A Insect bite (nonvenomous) of left forearm, initial encounter; W57.XXXA Bitten or stung by nonvenomous insect and other nonvenomous arthropods, initial encounter; Y93.89 Activity, other specified; Y92.89 Other specified places as the place of occurrence of the external cause; Y99.8 Other external cause status
CPT/HCPCS: 96372; 99281-25; J1100

== ENCOUNTER 2020-01-18 15:42 | Emergency (ER) | payer OTHER ==
[2020-01-18 15:51] VITALS: BP 127/71; PULSE 81; TEMP 98.6; BMI 25.1
--- NOTE | 2020-01-18 16:08 | PDOC ---
History of Present Illness - General Chief Complaint: Pain Stated Complaint: SORE THRT/KID PAIN Time Seen by Provider: 01/18/20 15:55 History Source: Patient Exam Limitations: No Limitations Past History - Past Medical History Allergies/Adverse Reactions: Allergies Allergy/AdvReac Type Severity Reaction Status Date / Time fish derived Allergy Rash Verified 01/18/20 15:47 Penicillins Allergy Itching Verified 01/18/20 15:47 ibuprofen [From Motrin] AdvReac Verified 01/18/20 15:47 Home Medications: Ambulatory Orders Sulfamethoxazole/Trimethoprim [Bactrim Ds -] 1 tab PO BID #28 tablet 01/18/20 COPD: No - Surgical History Abdominal Surgery: Yes (HERNIA) - Immunization History Td Vaccination: No TDAP Vaccination: No - Psycho Social/Smoking Cessation Hx Smoking Status: Yes Smoking History: Smoker current status UNK Have you smoked in the past 12 months: No Number of Cigarettes Smoked Daily: 1 'Breaking Loose' booklet given: 02/12/17 Hx Alcohol Use: No Drug/Substance Use Hx: No Substance Use Type: None Review of Systems - Review of Systems Able to Perform ROS?: Yes Comments:: 01/18/20 18:39 CONSTITUTIONAL: Absent: fever, chills, diaphoresis, generalized weakness, malaise, loss of appetite HEENT: Absent: rhinorrhea, nasal congestion, throat pain, throat swelling, difficulty swallowing, mouth swelling, ear pain, eye pain, visual Changes GASTROINTESTINAL: Absent: abdominal pain, abdominal distension, nausea, vomiting, diarrhea, constipation, melena, hematochezia GENITOURINARY: Present: Dysuria absent: dysuria, frequency, urgency, hesitancy, hematuria, flank pain, genital pain MUSCULOSKELETAL: Present: Back pain absent: myalgia, arthralgia, joint swelling SKIN: Absent: rash, itching, pallor NEUROLOGIC: Absent: headache, focal weakness or paresthesias, dizziness, unsteady gait, seizure, mental status changes, bladder or bowel incontinence PSYCHIATRIC: Absent: anxiety, depression, suicidal or homicidal ideation, hallucinations. Is the patient limited Bruneian proficient: No *Physical Exam - Vital Signs Last Vital Signs Temp Pulse Resp BP Pulse Ox 98.6 F 81 18 127/71 100 01/18/20 15:50 01/18/20 15:50 01/18/20 15:50 01/18/20 15:50 01/18/20 15:50 - Physical Exam 01/18/20 18:40 GENERAL: Well developed, well nourished. Awake and alert. No acute distress. HEENT: Normocephalic, atraumatic. PERRLA, EOMI. No conjunctival pallor. Sclera are non- icteric. Moist mucous membranes. ABDOMINAL: Soft. Non-tender. Non-distended. No rebound or guarding. No organomegaly. Normoactive bowel sounds. MUSCULOSKELETAL Normal range of motion at all joints. No bony deformities or tenderness. (+) L CVA tenderness. EXTREMITIES: No cyanosis. No clubbing. No edema. No calf tenderness. SKIN: Warm and dry. Normal capillary refill. No rashes. No jaundice. NEUROLOGICAL: Alert, awake, appropriate. Cranial nerves 2-12 intact. No deficits to light touch and temperature in face, upper extremities and lower extremities. No motor deficits in the in face, upper extremities and lower extremities. Normoreflexic in the upper and lower extremities. Normal speech. Toes are down- going bilaterally. Gait is normal without ataxia. PSYCHIATRIC: Cooperative. Good eye contact. Appropriate mood and affect. Medical Decision Making - Medical Decision Making 01/18/20 18:40 Patient is a 34-year-old female who presents to the ER with 3 days of suprapubic pain and back pain. She also notes she has dysuria. She states that the dysuria started on Wednesday and has since gotten a bit better but now she notices the pain is going up her back. She denies fevers, vomiting and lightheadedness. She also admits that she has a sore throat. She was seen at [facility] for this 3 days ago and tested negative for rapid strep. The culture was also negative according to the patient. A/P: Pyelonephritis On exam there is positive significant left CVA tenderness. Urine shows blood, patient reports she is on her menstrual cycle, however given the blood in the urine will rule out stone. CT scan shows no evidence of stone. Urine appears negative at this time however given patient's symptoms will treat as a pyelonephritis at this time. Discharge home with antibiotics and primary care follow-up. Return precautions given. I discussed the physical exam findings, ancillary test results and final diagnoses with the patient. I answered all of the patient's questions. The patient was satisfied with the care received and felt comfortable with the discharge plan and treatment plan. The Patient agrees to follow up with the primary care physician/specialist within 24-72 hours. Return precautions were given. Discharge - Discharge Information Problems reviewed: Yes Clinical Impression/Diagnosis: Pyelonephritis Condition: Stable Disposition: HOME - Admission No - Follow up/Referral Referrals: Chris Rolon MD [Staff Physician] - - Patient Discharge Instructions Patient Printed Discharge Instructions: DI for Kidney Infection Additional Instructions: Your evaluated for your back pain and discomfort with urination. Your urine was grossly normal, however given your symptoms regarding treat this as a potential kidney infection. Please take the antibiotics for 2 weeks twice a day. You may take Motrin as needed for pain, follow the dosing instructions on the bottle. Drink plenty of fluids. Follow-up with your primary care doctor this week. Return to the ER if you develop fevers, vomiting, weakness or if you have any changes in your symptoms. - Post Discharge Activity Work/Back to School Note: Back to Work
[2020-01-18 17:06] LABS: URINE APPEARANCE CLEAR; URINE BILIRUBIN NEGATIVE (NEGATIVE); URINE COLOR YELLOW; URINE GLUCOSE (UA) NEGATIVE (NEGATIVE); URINE KETONE NEGATIVE (NEGATIVE); URINE LEUK ESTERASE TRACE (NEGATIVE); URINE NITRITE NEGATIVE (NEGATIVE); URINE PROTEIN NEGATIVE (NEGATIVE); URINE UROBILINOGEN 0.2 mg/dL (0.2-1.0)
[2020-01-18 19:49] LABS: EPI CELLS 1.3 /HPF (0-5/HPF); URINE BACTERIA 197.3 /hpf (NEGATIVE); URINE RBC 0.7 /hpf (0-4); URINE WBC 7.2 /hpf (0-5)
== END 2020-01-18 18:46 | disposition home or self-care (01) ==
LOC: JERFT 15:42
DX: N12 Tubulo-interstitial nephritis, not specified as acute or chronic (principal); Z88.0 Allergy status to penicillin; Z91.013 Allergy to seafood; Z88.5 Allergy status to narcotic agent
CPT/HCPCS: 36415; 74176-TC; 81003; 84703; 87086; 87186; 87491; 87591; 99284-25

== ENCOUNTER 2020-01-31 10:42 | Emergency (ER) | payer OTHER ==
[2020-01-31 11:05] VITALS: BP 120/68; PULSE 68; TEMP 98.2; BMI 25.1
--- NOTE | 2020-01-31 13:07 | PDOC ---
History of Present Illness - General Chief Complaint: Cold Symptoms Stated Complaint: COLD SYMPTOMS Time Seen by Provider: 01/31/20 12:21 History Source: Patient Exam Limitations: No Limitations Past History - Travel Traveled outside of the country in the last 30 days: No Close contact w/someone who was outside of country & ill: No - Past Medical History Allergies/Adverse Reactions: Allergies Allergy/AdvReac Type Severity Reaction Status Date / Time fish derived Allergy Rash Verified 01/31/20 11:02 Penicillins Allergy Itching Verified 01/31/20 11:02 ibuprofen [From Motrin] AdvReac Verified 01/31/20 11:02 COPD: No - Surgical History Abdominal Surgery: Yes (HERNIA) - Immunization History Td Vaccination: No TDAP Vaccination: No - Psycho Social/Smoking Cessation Hx Smoking Status: Yes Smoking History: Never smoked Have you smoked in the past 12 months: No Number of Cigarettes Smoked Daily: 1 'Breaking Loose' booklet given: 02/12/17 Hx Alcohol Use: No Drug/Substance Use Hx: No Substance Use Type: None Review of Systems - Review of Systems Able to Perform ROS?: Yes Comments:: 01/31/20 13:00 CONSTITUTIONAL: Absent: fever, chills, diaphoresis, generalized weakness, malaise, loss of appetite HEENT: Present: postnasal drip, sore throat Absent: rhinorrhea, nasal congestion, throat swelling, difficulty swallowing, mouth swelling, ear pain, eye pain, visual Changes CARDIOVASCULAR: Absent: chest pain, loss of consciousness, palpitations, irregular heart rate, peripheral edema RESPIRATORY: Present: cough Absent: shortness of breath, dyspnea with exertion, orthopnea, wheezing, stridor, hemoptysis MUSCULOSKELETAL: Absent: myalgia, arthralgia, joint swelling SKIN: Absent: rash, itching, pallor NEUROLOGIC: Absent: headache, focal weakness or paresthesias, dizziness, unsteady gait, seizure, mental status changes, bladder or bowel incontinence PSYCHIATRIC: Absent: anxiety, depression, suicidal or homicidal ideation, hallucinations. Is the patient limited Faroese proficient: No All Other Systems: Reviewed and Negative *Physical Exam - Vital Signs Last Vital Signs Temp Pulse Resp BP Pulse Ox 98.2 F 68 18 120/68 99 01/31/20 11:04 01/31/20 11:04 01/31/20 11:04 01/31/20 11:04 01/31/20 11:04 - Physical Exam 01/31/20 15:54 GENERAL: The patient is awake, alert, and fully oriented, in no acute distress. HEAD: Normal with no signs of trauma. EYES: Pupils equal, round and reactive to light, extraocular movements intact, sclera anicteric, conjunctiva clear. HEENT: No nasal congestion or rhinorrhea. No sinus Tenderness. Mucous membranes are moist. No tonsillar erythema, exudate or edema. Uvula is midline. No TM bulging, dullness or erythema. LUNGS: Clear to auscultation bilateral without wheezes rales or rhonchi. Normal excursion. No respiratory distress. EXTREMITIES: Normal range of motion, no edema. NEUROLOGICAL: Normal speech, normal gait. PSYCH: Normal mood, normal affect. SKIN: Warm, Dry, normal turgor, no rashes or lesions noted. Medical Decision Making - Medical Decision Making 01/31/20 15:55 The patient is a 34-year-old female with no past medical history, presents to the emergency department today for a postnasal drip, sore throat and cough. She states that the symptoms are consistent with her seasonal allergies. She states she recently started taking her Claritin 2 days ago. She states she was sent here by her work because they were concerned about possible coronavirus exposure.. Patient denies fevers, recent travel, known sick contacts. A/P: Cough On exam lungs are clear to auscultation bilateral without wheezes rales or rhonchi. Throat is nonerythematous without exudate or edema. Patient reports feeling a drip down the back of her throat. Likely that this is the patient's seasonal allergies, however advised patient to stay home until her cough has resolved. Work note given. Discharge home with primary care follow-up this week. I discussed the physical exam findings, ancillary test results and final diagnoses with the patient. I answered all of the patient's questions. The patient was satisfied with the care received and felt comfortable with the discharge plan and treatment plan. The Patient agrees to follow up with the primary care physician/specialist within 24-72 hours. Return precautions were given. Discharge - Discharge Information Problems reviewed: Yes Clinical Impression/Diagnosis: Pharyngitis Qualifiers: Pharyngitis/tonsillitis etiology: unspecified etiology Qualified Code(s): J02.9 - Acute pharyngitis, unspecified Condition: Stable Disposition: HOME - Admission No - Follow up/Referral Referrals: Camilo Kan MD [Primary Care Provider] - - Patient Discharge Instructions Patient Printed Discharge Instructions: DI for Pharyngitis/Tonsillopharyngitis -- Adult Additional Instructions: You were evaluated for your sore throat today. It is most likely due to your allergies. Please take your Claritin as directed. Please return to work when your cough has subsided. Plenty of fluids and get plenty of rest. Follow-up with your primary care doctor. Return to the ER for worsening cough, fever, difficulty breathing or if you have any changes in your symptoms. - Post Discharge Activity Work/Back to School Note: Back to Work
== END 2020-01-31 13:13 | disposition home or self-care (01) ==
LOC: JERFT 10:42
DX: J02.9 Acute pharyngitis, unspecified (principal); Z91.013 Allergy to seafood; Z88.0 Allergy status to penicillin; Z88.8 Allergy status to other drugs, medicaments and biological substances
CPT/HCPCS: 99282-25

== ENCOUNTER 2021-09-16 08:18 | Emergency (ER) | payer OTHER ==
[2021-09-16 08:28] VITALS: BP 121/81; PULSE 76; TEMP 98.1; BMI 26.6
== END 2021-09-16 09:45 | disposition home or self-care (01) ==
LOC: JER 08:18
DX: R05.1 Acute cough (principal); R09.81 Nasal congestion; J06.9 Acute upper respiratory infection, unspecified; Z11.52 Encounter for screening for COVID-19
CPT/HCPCS: 71046-TC-FY; 99284-25; C9803; U0003; U0005

== ENCOUNTER 2021-10-07 19:57 | Emergency (ER) | payer OTHER ==
[2021-10-07 20:05] VITALS: BP 112/75; PULSE 73; BMI 25.0
[2021-10-07 21:37] VITALS: TEMP 98.2
== END 2021-10-07 21:46 | disposition home or self-care (01) ==
LOC: JER 19:57
DX: R09.81 Nasal congestion (principal); J06.9 Acute upper respiratory infection, unspecified; R05.9 Cough, unspecified
CPT/HCPCS: 71046-TC-FY; 87651; 87804; 99284-25; C9803; U0003; U0005

== ENCOUNTER 2021-12-08 16:00 | Emergency (ER) | payer OTHER ==
[2021-12-08 16:28] VITALS: BP 119/71; PULSE 79; TEMP 98.2; BMI 26.6
== END 2021-12-08 17:50 | disposition home or self-care (01) ==
LOC: JER 16:00
DX: U07.1 COVID-19 (principal)
CPT/HCPCS: 99283-25

== ENCOUNTER 2023-09-08 16:32 | Emergency (ER) | payer OTHER ==
[2023-09-08 16:47] VITALS: BP 110/64; PULSE 96; RESP 17; TEMP 98.4; BMI 24.1
[2023-09-08] MEDS ORDERED: DIPHTH,PERTUSS(ACELL),TET 0.5 ML DISP.SYRIN IM ONE ×2 (18:11→18:14)
== END 2023-09-08 18:36 | disposition home or self-care (01) ==
LOC: JERFT 16:32
PROC: 0HQGXZZ Repair Left Hand Skin, External Approach (ICD-10-PCS; principal; 2023-09-08)
PROC: 3E0234Z Introduction of Serum, Toxoid and Vaccine into Muscle, Percutaneous Approach (ICD-10-PCS; 2023-09-08)
DX: S51.812A Laceration without foreign body of left forearm, initial encounter (principal); S61.412A Laceration without foreign body of left hand, initial encounter; Y04.8XXA Assault by other bodily force, initial encounter
CPT/HCPCS: 12004; 90471; 90715; 99282-25

== ENCOUNTER 2024-01-02 04:43 | Emergency (ER) | payer OTHER ==
[2024-01-02 04:53] VITALS: BMI 21.6
[2024-01-02] MEDS: SODIUM CHLORIDE 0.9% 500 ML INFUS.BAG IV ONE (06:30)
[2024-01-02] MEDS: FAMOTIDINE 20 MG/50 ML IVPB 20 MG/50 ML MG IVPB ONE (06:30)
[2024-01-02] MEDS: ONDANSETRON 4 MG/2 ML VIAL IVPUSH ONE (06:30)
[2024-01-02] MEDS ORDERED: ONDANSETRON 4 MG/2 ML VIAL ONE (06:31)
[2024-01-02] MEDS ORDERED: FAMOTIDINE 20 MG/50 ML IVPB 20 MG/50 ML MG IVPB ONE (06:31)
[2024-01-02 07:05] LABS: BASO % 0.6 % (0-2.0); EOS % 1.2 % (0-4.5); HEMATOCRIT 35.9 % (32.4-45.2); HEMOGLOBIN 12.1 GM/dL (10.7-15.3); LYMPH % 21.3 % (8-40); MCHC 33.6 g/dl (32.0-36.0); MEAN CELL VOLUME 89.2 fl (80-96); MEAN PLT VOLUME 8.4 fl (7.5-11.1); MONO % 9.7 % (3.8-10.2); NEUT % 67.2 % (42.8-82.8); PLATELET COUNT 262 10^3/uL (134-434); RBC 4.03 M/mm3 (3.60-5.2); RDW 13.9 % (11.6-15.6); WHITE BLOOD COUNT 6.5 K/mm3 (4.0-10.0)
[2024-01-02 07:11] LABS: POTASSIUM 4.1 mmol/L (3.5-5.1)
[2024-01-02 07:13] LABS: CALCIUM 8.5 mg/dL (8.5-10.1)
[2024-01-02 07:14] LABS: ALBUMIN 3.5 g/dl (3.4-5.0); BLOOD UREA NITROGEN 14.1 mg/dL (7-18)
[2024-01-02 07:17] LABS: CREATININE 0.7 mg/dL (0.55-1.3)
[2024-01-02 07:18] LABS: BILIRUBIN,TOTAL 0.3 mg/dL (0.2-1)
[2024-01-02 08:40] LABS: EPI CELLS >36 /uL (0-25.1); HYALINE CASTS 0 /uL (0-3.1); PH,URINE 5.5 (5.0-8.0); URINE APPEARANCE CLEAR; URINE BACTERIA 898 /uL (0-1359); URINE BILIRUBIN NEGATIVE (NEGATIVE); URINE COLOR YELLOW; URINE GLUCOSE (UA) NEGATIVE (NEGATIVE); URINE KETONE 1+ (NEGATIVE); URINE LEUK ESTERASE NEGATIVE (NEGATIVE); URINE NITRITE NEGATIVE (NEGATIVE); URINE PROTEIN NEGATIVE (NEGATIVE); URINE UROBILINOGEN 0.2 mg/dL (0.2-1.0); URINE WBC 8 /uL (0-25.8)
[2024-01-02 08:51] LABS: URINE RBC 57.9 /uL (0-23.9)
[2024-01-02 09:12] VITALS: BP 117/72; PULSE 71; RESP 20; TEMP 98.1
== END 2024-01-02 09:32 | disposition home or self-care (01) ==
LOC: JER 04:43
PROC: 3E033GC Introduction of Other Therapeutic Substance into Peripheral Vein, Percutaneous Approach (ICD-10-PCS; principal; 2024-01-02)
PROC: 3E033GC Introduction of Other Therapeutic Substance into Peripheral Vein, Percutaneous Approach (ICD-10-PCS; 2024-01-02)
DX: R10.13 Epigastric pain (principal); R11.2 Nausea with vomiting, unspecified; R19.7 Diarrhea, unspecified
CPT/HCPCS: 36415; 80053; 81003; 84703; 85025; 99284-25

== ENCOUNTER 2024-01-05 00:46 | Observation (INO) | payer OTHER ==
[2024-01-05] MEDS ORDERED: ACETAMINOPHEN INJECTION 100 ML IVPB ONE (01:29)
[2024-01-05] MEDS ORDERED: FAMOTIDINE 20 MG/50 ML IVPB 20 MG/50 ML MG IVPB ONE (01:29)
[2024-01-05] MEDS ORDERED: ONDANSETRON 4 MG/2 ML VIAL ONE (01:29)
[2024-01-05] MEDS: ACETAMINOPHEN 1000 MG/100 ML BAG IVPB ONE (01:44)
[2024-01-05] MEDS: ONDANSETRON 4 MG/2 ML VIAL IVPUSH ONE (01:44)
[2024-01-05] MEDS: LACTATED RINGERS SOLUTION 1000 ML INFUS.BAG IV ONE (01:44)
[2024-01-05 02:02] LABS: BASO % 0.3 % (0-2.0); EOS % 0.5 % (0-4.5); HEMATOCRIT 40.2 % (32.4-45.2); HEMOGLOBIN 13.4 GM/dL (10.7-15.3); LYMPH % 13.1 % (8-40); MCH 29.7 pg (25.7-33.7); MCHC 33.4 g/dl (32.0-36.0); MEAN PLT VOLUME 8.2 fl (7.5-11.1); MONO % 8.4 % (3.8-10.2); NEUT % 77.7 % (42.8-82.8); PLATELET COUNT 280 10^3/uL (134-434); RBC 4.52 M/mm3 (3.60-5.2); RDW 14.1 % (11.6-15.6); WHITE BLOOD COUNT 8.7 K/mm3 (4.0-10.0)
[2024-01-05] MEDS: FAMOTIDINE 20 MG/50 ML IVPB 20 MG/50 ML MG IVPB ONE (02:12)
[2024-01-05 02:27] LABS: POTASSIUM 3.7 mmol/L (3.5-5.1)
[2024-01-05 02:30] LABS: ALBUMIN 3.6 g/dl (3.4-5.0); MAGNESIUM 1.5 mg/dL (1.8-2.4)
[2024-01-05 02:33] LABS: CREATININE 0.7 mg/dL (0.55-1.3)
[2024-01-05 02:34] LABS: TOT PROT 6.9 g/dl (6.4-8.2)
[2024-01-05 02:35] LABS: BILIRUBIN,TOTAL 0.4 mg/dL (0.2-1)
[2024-01-05] MEDS ORDERED: METOCLOPRAMIDE HCL INJECTION 10 MG/2 ML VIAL ONE (03:04)
[2024-01-05] MEDS ORDERED: MAGNESIUM SULFATE IN WATER 2 GM/50 ML IVPB IVPB ONE (03:05)
[2024-01-05] MEDS: METOCLOPRAMIDE HCL INJECTION 10 MG/2 ML VIAL IVPUSH ONE (03:16)
[2024-01-05] MEDS: MAGNESIUM SULF 50% (8.12 MEQ/2 ML-1 GM VIAL) IVPB ONE (04:04)
[2024-01-05] MEDS: HALOPERIDOL LACTATE 5 MG/ML IVPUSH ONE (04:42)
[2024-01-05] MEDS ORDERED: HALOPERIDOL LACTATE 5 MG/ML ONE (04:43)
[2024-01-05] MEDS: HALOPERIDOL LACTATE 5 MG/ML IM ONE (04:52)
[2024-01-05] MEDS: DEXTROSE 5%-0.45% SALINE 1,000 ML IV SCH (06:20)
[2024-01-05] MEDS ORDERED: ACETAMINOPHEN 1000 MG/100 ML BAG IVPB PRN (08:00)
[2024-01-05 09:10] VITALS: RESP 20; BMI 22.4
[2024-01-05] MEDS: PANTOPRAZOLE SODIUM 40 MG VIAL IVPUSH SCH (09:40)
[2024-01-05 14:44] VITALS: BP 116/66; PULSE 69; TEMP 98.8
== END 2024-01-05 19:04 | disposition home or self-care (01) ==
LOC: JER 00:46 → JERBED 04:31 → J6S 08:11
PROVIDERS: ADMIT Family Medicine; ATTEND Family Medicine
PROC: 3E033NZ Introduction of Analgesics, Hypnotics, Sedatives into Peripheral Vein, Percutaneous Approach (ICD-10-PCS; principal; 2024-01-05)
PROC: 3E033GC Introduction of Other Therapeutic Substance into Peripheral Vein, Percutaneous Approach (ICD-10-PCS; 2024-01-05)
PROC: 3E023GC Introduction of Other Therapeutic Substance into Muscle, Percutaneous Approach (ICD-10-PCS; 2024-01-05)
PROC: 3E0337Z Introduction of Electrolytic and Water Balance Substance into Peripheral Vein, Percutaneous Approach (ICD-10-PCS; 2024-01-05)
DX: K52.9 Noninfective gastroenteritis and colitis, unspecified (principal); F12.988 Cannabis use, unspecified with other cannabis-induced disorder; K29.70 Gastritis, unspecified, without bleeding; E83.42 Hypomagnesemia; Z91.013 Allergy to seafood; Z90.79 Acquired absence of other genital organ(s); Z88.8 Allergy status to other drugs, medicaments and biological substances; Z88.0 Allergy status to penicillin; F17.200 Nicotine dependence, unspecified, uncomplicated
CPT/HCPCS: 0241U-QW; 36415; 74177-TC; 76705-TC; 80053; 81003; 83690; 83735; 84703; 85025; 93005; 93010; 96365; 96367; 96372; 96375; 99285-25; G0378; J0131